=== PATIENT | female | born 1950 | race Caucasian/White ===

== ENCOUNTER → 2017-08-17 | Outpatient (CLI) | END | disposition home or self-care (01) ==

== ENCOUNTER → 2017-08-31 | Outpatient (CLI) | END | disposition home or self-care (01) ==

== ENCOUNTER → 2017-12-03 | Outpatient (CLI) | END | disposition home or self-care (01) ==

== ENCOUNTER → 2018-01-28 | Outpatient (CLI) | END | disposition home or self-care (01) ==

== ENCOUNTER → 2018-02-04 | Outpatient (CLI) | END | disposition home or self-care (01) ==